=== PATIENT | female | born 1985 | race Caucasian/White ===

== ENCOUNTER 2019-07-03 19:33 | Observation (INO) | payer BC, OTHER ==
[~2019-07-03] VITALS: Ht 157.5 cm; Wt 64.4 kg
[2019-07-03] MEDS ORDERED: RINGERS LACTATED IV SCH (20:54)
[2019-07-03 21:49] VITALS: BP 120/71
[2019-07-03] MEDS ORDERED: RINGERS SOLUTION,LACTATED 1,000 ML IV SCH ×2 (22:07)
== END 2019-07-03 23:30 | disposition home or self-care (01) ==
LOC: 4S 19:33
PROVIDERS: ADMIT Obstetrics & Gynecology; ATTEND Obstetrics & Gynecology
DX: O26.892 Other specified pregnancy related conditions, second trimester (principal); R10.9 Unspecified abdominal pain; Z3A.26 26 weeks gestation of pregnancy
CPT/HCPCS: 59025; 81001; G0378; J7120